=== PATIENT | female | born 1945 | race Caucasian/White ===

== ENCOUNTER 2018-03-22 08:39 | Outpatient (CLI) | payer MEDICARE, OTHER ==
--- NOTE | 2018-03-23 09:49 | Mammography Report ---
Reason: SCREENING MAMMO Procedure Date: 03/22/2018 Accession Number: [id number] / [id number] Procedure: BRIDGER - Screening Mammo w/Mathew CPT Code: FULL RESULT: EXAM: Screening Mammo w/Mathew DATE: 03/22/2018 9:24 AM CLINICAL HISTORY: Screening encounter. History of nulliparity and family history of breast cancer in a cousin at the age of 30 years and an aunt in her 40s. TECHNIQUE: Bilateral CC and MLO views were obtained. A cleavage view was obtained. COMPARISON: 05/16/2014 through 11/18/2009. FINDINGS: The breasts demonstrate heterogeneously dense fibroglandular parenchyma bilaterally. Coarse typically benign calcifications are identified bilaterally. No suspicious masses, clustered microcalcifications, or regions of architectural distortion are identified. IMPRESSION: Benign findings RECOMMENDATION: Routine annual screening unless otherwise clinically indicated. BIRADS CATEGORY 2: Benign findings STANDARD QUALIFYING STATEMENTS: 1. This examination was not reviewed with the aid of Computer-Aided Detection (CAD). 2. A negative or benign imaging report should not preclude biopsy if clinically suspicious findings are present. 3. Dense breasts may obscure an underlying neoplasm. 4. This examination was reviewed with the aid of 3D breast imaging (tomosynthesis).
== END 2018-03-22 08:40 | disposition home or self-care (01) ==
LOC: DI 08:39
DX: Z12.31 Encounter for screening mammogram for malignant neoplasm of breast (principal); Z80.3 Family history of malignant neoplasm of breast
CPT/HCPCS: 77063; 77067

== ENCOUNTER 2022-07-13 09:11 | Outpatient (CLI) | payer MEDICARE, OTHER ==
--- NOTE | 2022-07-14 10:14 | Ultrasound Report ---
LIMITED ULTRASOUND OF LEFT BREAST: 07/13/2022 CLINICAL: Focal left breast pain. Comparison is made to exams dated: 03/22/2018 mammogram, 06/19/2012 mammogram, 12/01/2010 mammogram, mammogram, 10/21/2009 mammogram - [facility], and 06/29/2006 mammogram - [facility]. Ultrasound of the left breast 11-1 o'clock region was performed on the area of interest. Engle scale images of the real-time examination were reviewed. IMPRESSION: NEGATIVE There is no sonographic evidence of malignancy. There is no mammographic or sonographic abnormality seen in the left breast to correspond with the pa in, however, clinical followup is recommended. Return to annual mammogram screening schedule is recommended. This exam was interpreted at Station ID: [id number]. Electronically Signed By: Tamika Shetty M.D. lk/:07/13/2022 10:26:11 Ultrasound BI-RADS: 1 Negative BI-RADS CATEGORY: (1) - 1 Mammogram [id number] return to screening LATERALITY: (B)
--- NOTE | 2022-07-14 10:14 | Mammography Report ---
BILATERAL DIGITAL DIAGNOSTIC MAMMOGRAM 3D/2D: 07/13/2022 CLINICAL: Intermittent pain in left breast. Due for bilateral imaging. Comparison is made to exams dated: 03/22/2018 mammogram, 06/19/2012 mammogram, and 12/01/2010 mammogra m - [facility]. Both breasts are heterogeneously dense, which may obscure small masses (category c / 51-75% glandular tissue). No significant masses, calcifications, or other findings are seen in either breast. IMPRESSION: INCOMPLETE: NEEDS ADDITIONAL IMAGING EVALUATION There is no mammographic abnormality seen in the left breast to correspond with the pain, however, ta rgeted ultrasound of the left breast is recommended and will be performed immediately following this exam. Based on the Tyrer Cuzick model (a risk assessment model) the patients lifetime risk is 9.7% and her 10 year risk is 9.7%. According to the ACR, ACS, and NCCN guidelines, an annual breast MRI exam daljit g with mammogram is recommended if the patients lifetime risk is 20% or greater. This exam was interpreted at Station ID: [id number]. NOTE: For mammograms, a report in lay terms will be sent to the patient. Approximately 15% of breast malignancies will not be visualized mammographically. In the management of a palpable breast mass, a negative mammogram must not discourage biopsy of a clinically suspicious lesion. Electronically Signed By: Tamika Shtety M.D. lk/:07/13/2022 09:52:28 ACR BI-RADS Category 0: Incomplete 3340F PARENCHYMAL PATTERN: (D) - The breast(s) demonstrate(s) heterogeneously dense fibroglandular hannah clayton. BI-RADS CATEGORY: (0) - 0 Ultrasound [id number] Immediate follow-up LATERALITY: (B)
== END 2022-07-13 09:12 | disposition home or self-care (01) ==
LOC: DI 09:11
PROVIDERS: ATTEND Physician Assistant
DX: N64.4 Mastodynia (principal)

== ENCOUNTER 2023-03-02 08:22 | Outpatient (CLI) | payer MEDICARE ==
--- NOTE | 2023-03-02 13:25 | XRAY Report ---
PROCEDURE: Wrist 3 View RT INDICATIONS: OTHER SPECIFIED SPRAIN OF RIGHT WRIST TECHNIQUE: 3 views of the wrist were acquired. COMPARISON: None. FINDINGS: There are fractures involving the head of the right fourth metacarpal and base of the right fifth met acarpal age-indeterminate. Recommend clinical correlation for recent trauma. There is also some mild subluxation of the right fifth carpal metacarpal joint. No significant degenerative changes are seen. Soft tissues appear within normal limits. IMPRESSION: 1. Fracture involving the head of the right fourth metacarpal. 2. Fracture at the base of the right fifth metacarpal. 3. Subluxation of the right fifth carpometacarpal joint. Reviewed by: Loi Luis MD on 03/02/2023 1:24 PM PST Approved by: Loi Luis MD on 03/02/2023 1:24 PM PST Station ID: [id number]
--- NOTE | 2023-03-02 13:28 | XRAY Report ---
PROCEDURE: Hand 3 View RT INDICATIONS: OTHER SPECIFIED SPRAIN OF RIGHT WRIST TECHNIQUE: 3 views of the right hand(s) acquired. COMPARISON: None. FINDINGS: There are fractures involving the head of the right fourth metacarpal and base of the right fifth met acarpal. There is some subluxation of the right fifth carpometacarpal joint. No other fractures or di slocations are seen. No significant degenerative changes are present. Soft tissues appear within norm al limits. IMPRESSION: 1. Fracture involving the head of the right fourth metacarpal. 2. Fracture involving the base of the right fifth metacarpal. 3. Subluxation of the right fifth carpometacarpal joint. Reviewed by: Loi Luis MD on 03/02/2023 1:27 PM [facility] Approved by: Loi Luis MD on 03/02/2023 1:27 PM [facility] Station ID: [id number]
== END 2023-03-02 08:23 | disposition home or self-care (01) ==
LOC: DI 08:22
PROVIDERS: ATTEND Physician Assistant Medical
DX: S63.591A Other specified sprain of right wrist, initial encounter (principal); S62.394A Other fracture of fourth metacarpal bone, right hand, initial encounter for closed fracture; S62.396A Other fracture of fifth metacarpal bone, right hand, initial encounter for closed fracture; S63.051A Subluxation of other carpometacarpal joint of right hand, initial encounter

== ENCOUNTER 2023-04-04 08:00 | Outpatient (CLI) | payer MEDICARE ==
--- NOTE | 2023-04-05 08:38 | XRAY Report ---
PROCEDURE: Hand 3 View RT INDICATIONS: RIGHT HAND PAIN TECHNIQUE: 3 views of the hand(s) acquired. COMPARISON: None. FINDINGS: Bones: There is a fracture involving the fourth metacarpal neck with minimal displacement. In additi on, there is a fracture involving the base of the fifth metacarpal with mild displacement. No suspici ous bony lesions. Mild osteoarthritic changes are present. Soft tissues: No suspicious soft tissue calcifications or masses. Decreased soft tissue swelling. IMPRESSION: 1. Healing fourth metacarpal neck fracture and fifth metacarpal base fracture. Reviewed by: Edie Georges MD on 04/05/2023 8:37 AM PST Approved by: Edie Georges MD on 04/05/2023 8:37 AM PST Station ID: [id number]
== END 2023-04-04 23:59 | disposition home or self-care (01) ==
LOC: DI.WOS 08:00
PROVIDERS: ATTEND Orthopaedic Surgery
DX: S62.334D Displaced fracture of neck of fourth metacarpal bone, right hand, subsequent encounter for fracture with routine healing (principal); S62.316D Displaced fracture of base of fifth metacarpal bone, right hand, subsequent encounter for fracture with routine healing